=== PATIENT | female | born 1950 | race Caucasian/White ===

== ENCOUNTER 2016-12-05 14:10 | Emergency (ER) | payer BC ==
[~2016-12-05] VITALS: Ht 160 cm; Wt 50.7 kg
[2016-12-05 14:16] VITALS: BP 143/91
[2016-12-05] MEDS ORDERED: LIDOCAINE 1%, 20ML ONE (14:51)
[2016-12-05] MEDS ORDERED: LIDOCAINE 1%, 20ML SQ ONE (15:00)
[2016-12-05 15:05] LABS: HEMATOCRIT 41.4 % (34.6-47.8); HEMOGLOBIN 14.3 g/dL (11.7-16.4); WHITE BLOOD COUNT 4.4 x10^3/uL (3.4-10)
[2016-12-05] MEDS ORDERED: BACITRACIN ZINC OINT 500U/GM, 0.9 GM ONE (15:08)
[2016-12-05 15:13] LABS: BLOOD UREA NITROGEN 16 mg/dL (7-18)
[2016-12-05] MEDS ORDERED: SODIUM CHLORIDE 0.9% 1,000ML IVBOLUS ONE (15:30)
[2016-12-05 15:57] LABS: PATH.CAST-FLAG NOT PRESENT; SPERM-FLAG NOT PRESENT; SRC-FLAG NOT PRESENT; XTAL-FLAG NOT PRESENT; YLC-FLAG NOT PRESENT
== END 2016-12-05 16:28 ==
LOC: ED 16:26
DX: S06.0X0A Concussion without loss of consciousness, initial encounter (principal); S01.01XA Laceration without foreign body of scalp, initial encounter; W01.0XXA Fall on same level from slipping, tripping and stumbling without subsequent striking against object, initial encounter; Y93.89 Activity, other specified; Y92.009 Unspecified place in unspecified non-institutional (private) residence as the place of occurrence of the external cause; Y99.9 Unspecified external cause status
CPT/HCPCS: 12002; 36415; 70450; 80048; 81001; 82040; 85025; 93005; 99285

== ENCOUNTER 2016-12-10 10:38 | Emergency (ER) | payer BC ==
[~2016-12-10] VITALS: Ht 160 cm; Wt 50.0 kg
[2016-12-10 12:11] LABS: HEMATOCRIT 38.5 % (34.6-47.8); HEMOGLOBIN 13.3 g/dL (11.7-16.4); WHITE BLOOD COUNT 3.7 x10^3/uL (3.4-10)
[2016-12-10 12:23] LABS: BLOOD UREA NITROGEN 16 mg/dL (7-18)
[2016-12-10 13:20] VITALS: BP 151/83
== END 2016-12-10 13:39 | disposition home or self-care (01) ==
LOC: ED 12:48
DX: S06.0X0A Concussion without loss of consciousness, initial encounter (principal); R41.0 Disorientation, unspecified; W01.10XA Fall on same level from slipping, tripping and stumbling with subsequent striking against unspecified object, initial encounter; Y93.89 Activity, other specified; Y92.89 Other specified places as the place of occurrence of the external cause; Y99.8 Other external cause status
CPT/HCPCS: 36415; 70450; 80048; 82040; 84439; 84443; 85025; 93005; 99285